=== PATIENT | male | born 1975 | race Caucasian/White ===

== ENCOUNTER 2017-09-21 15:52 | Emergency (ER) | payer SELFPAY ==
[~2017-09-21] VITALS: Ht 172.7 cm; Wt 51.8 kg
[2017-09-21 16:58] LABS: BASO % 0.6 % (0.0-1.0); EOS # 0.2 10^3/uL (0.0-0.50); EOS % 2.8 % (0.0-3.0); IMMATURE GRANULOCYTE % 0.1 % (0-0); LYMPH # 1.1 10^3/uL (1.5-4.5); MEAN CORPUSCULAR HEMOGLOBIN 29.5 pg (27.0-33.0); MEAN CORPUSCULAR HGB CONC 34.4 g/dl (32.0-36.5); MEAN CORPUSCULAR VOLUME 85.6 fl (80.0-96.0); MONO # 0.6 10^3/uL (0.0-0.8); MONO % 8.1 % (0.0-5.0); NEUTROPHILS # 4.9 10^3/uL (1.8-7.7); NEUTROPHILS % 72.4 % (36.0-66.0); PLATELET COUNT, AUTOMATED 300 10^3/uL (150-450); RED CELL DISTRIBUTION WIDTH 11.9 % (11.5-14.5); WHITE BLOOD COUNT 6.8 10^3/uL (4.0-10.0)
[2017-09-21 17:21] LABS: ALBUMIN 3.9 GM/DL (3.2-5.2); ALBUMIN/GLOBULIN RATIO 1.18 (1.00-1.93); ALKALINE PHOSPHATASE 86 U/L (45-117); ALT/SGPT 45 U/L (12-78); ANION GAP 9 MEQ/L (8-16); AST/SGOT 25 U/L (7-37); BILIRUBIN,DIRECT 0.3 MG/DL (0.0-0.2); BILIRUBIN,TOTAL 1.4 MG/DL (0.2-1.0); BLOOD UREA NITROGEN 17 MG/DL (7-18); CALCIUM LEVEL 8.6 MG/DL (8.5-10.1); CARBON DIOXIDE LEVEL 27 MEQ/L (21-32); CHLORIDE LEVEL 106 MEQ/L (98-107); CREATININE FOR GFR 0.92 MG/DL (0.70-1.30); GLOMERULAR FILTRATION RATE > 60.0 (>60); GLUCOSE, FASTING 107 MG/DL (70-105); POTASSIUM SERUM 3.2 MEQ/L (3.5-5.1); SODIUM LEVEL 142 MEQ/L (136-145); TOTAL PROTEIN 7.2 GM/DL (6.4-8.2)
[2017-09-21] MEDS ORDERED: LIDOCAINE 2% JELLY 30 ML As Ordered ONE (17:24)
[2017-09-21] MEDS ORDERED: LIDOCAINE 2% 5ML JELLY UROJET TOP ONE (17:30)
[2017-09-21] MEDS ORDERED: LIDOCAINE 2% JELLY 30 ML TOP ONE ×2 (17:45→22:45)
[2017-09-21] MEDS ORDERED: POTASSIUM CHLORIDE 10 MEQ SR TABLET PO ONE (18:15)
[2017-09-21] MEDS ORDERED: TAMSULOSIN 0.4 MG CAP PO ONE ×2 (18:15→21:00)
[2017-09-21 18:24] LABS: MICROSCOPIC INDICATED? RFX YES (NO)
[2017-09-21 18:25] LABS: BACTERIA, URINE NONE SEEN; HYALINE CAST, URINE NONE SEEN /lpf (0-1); MICROSCOPIC EXAM PERFORMED; RBC, URINE TNTC /hpf (0-3); SQUAMOUS EPITHELIAL CELL URINE SMALL AMOUNT /hpf (SMALL AMT); WBC, URINE NONE SEEN /hpf (0-3)
[2017-09-21] MEDS ORDERED: PERCOCET 5MG/325MG TAB PO ONE (19:30)
[2017-09-21] MEDS ORDERED: CIPROFLOXACIN 500 MG TAB PO ONE (19:30)
[2017-09-21] MEDS ORDERED: PHENAZOPYRIDINE 100 MG TAB PO ONE (19:30)
[2017-09-21] MEDS ORDERED: hydrOXYzine 50 MG TAB PO STA (20:50)
--- NOTE | 2017-09-21 22:58 | SMCUROLCON ---
Urology Consultation General Date of Consultation 09/21/17 Reason For Consultation This patient is seen for Urinary Issue.Patient passed stone earlier today. Since then has been unable to void. no prior voiding sxs Multiple attempts made to pass catheter by ER staff however unsuccessful. Denies recent UTI. No hx of BPH. No flow issues. Denies past hx, hx of catheterization History of Present Illness The patient is a [42]-year-old [male] with a past medical history for [ nephrolithiasis].No prior hx.No difficulties voiding prior to this visit. Passed stone earlier today. Hx of nephrolithiasis and passed stones previously Medications Current Medications Current Medications Hydroxyzine HCl (Atarax) 50 mg STAT STAT PO Last administered on 09/21/17t 20 :55; Start 09/21/17 at 20:50; Stop 09/21/17 at 20:51; Status DC Allergies Allergies: Coded Allergies: No Known Drug Allergy (Verified Allergy, Unknown, 09/21/17) Review of Systems General: Denies: ROS Unobtainable, Chills, Night Sweats, Fatigue, Malaise, Normal Appetite, Other Symptoms Constitutional: Denies: Fever, Chills, Sweats, Weakness, Malaise, Other Eyes: Denies: Pain, Vision change, Conjunctivae inflammation, Eyelid inflammation, Redness, Other ENT: Denies: Head Aches, Ear Pain, Dysphagia, Sinus Congestion, Post Nasal Drip , Sore Throat, Epistaxis, Other Symptoms Pulmonary: Denies: Dyspnea, Cough, Pleuritic Chest Pain, Other Symptoms Cardiovascular: Denies Chest Pain, Denies Palpitations, Denies Orthopnea, Denies Paroxysmal Noc. Dyspnea, Denies Edema, Denies Lt Headedness, Denies Other Symptoms Genitourinary: Reports: Dysuria, Frequency, Incontinence, Hematuria, Retention , Other Symptoms Hematologic: Denies: Bruising, Bleeding Excessively, Petecchia, Purpura, Enlarged Lymph Nodes, Other Hematologic Endocrine: Denies: Polydipsia, Polyphagia, Polyuria, Heat Intolerance, Cold Intolerance, Other Endocrine Sx Physical Examination Chest Exam: No: Clear to auscultation, Normal air movement, Rales, Rhonchi, Wheezing, Diminished, Other Heart Exam: No: Rate Normal, Tachycardic, Bradycardic, Regular Rhythm, Irregular Rhythm, Normal S1, Normal S2, Gallops, Murmurs, Rubs, Other Abdomen Exam: No: Normal Bowel Sounds, BS Hyperactive, BS Hypoactive, Soft, Tenderness, Hepatospenomegaly, Mass, Hernia, Other Male Exam Blood at the meatus; circumcised; testes descended; urethra non tender Extremity Exam: No: Clubbing, Cyanosis, Edema, Normal Pulses, Tenderness, Swelling, Other Skin Exam: No: Nl turgor and temperature, Rash, Breakdown, Lesion, Pruritus, Other skin issue Neuro Exam: No: Normal Gait, Normal Speech, Strength at 5/5 X4 ext, Normal Tone , Sensation Intact, Cranial Nerves 3-12 NL, Reflexes 2+, Other Vital Signs/I&O Vital Signs Date Time Temp Pulse Resp B/P (MAP) Pulse Ox O2 Delivery O2 Flow Rate FiO2 09/21/17 22:00 99.2 102 14 120/60 (80) 98 Room Air Laboratory Data 24H Labs Laboratory Tests 2 09/21/17 16:45: Immature Granulocyte % (Auto) 0.1H, White Blood Count 6.8, Red Blood Count 5.29 , Hemoglobin 15.6, Hematocrit 45.3, Mean Corpuscular Volume 85.6, Mean Corpuscular Hemoglobin 29.5, Mean Corpuscular Hemoglobin Concent 34.4, Red Cell Distribution Width 11.9, Platelet Count 300, Neutrophils (%) (Auto) 72.4H, Lymphocytes (%) (Auto) 16.0L, Monocytes (%) (Auto) 8.1H, Eosinophils (%) (Auto) 2.8, Basophils (%) (Auto) 0.6, Neutrophils # (Auto) 4.9, Lymphocytes # (Auto) 1.1L, Monocytes # (Auto) 0.6, Eosinophils # (Auto) 0.2, Basophils # (Auto) 0.0, Immature Granulocyte # (Auto) 0.0, Nucleated Red Blood Cells % (auto) 0.0, Anion Gap 9, Glomerular Filtration Rate > 60.0, Calcium Level 8.6, Aspartate Amino Transf (AST/SGOT) 25, Alanine Aminotransferase (ALT/SGPT) 45, Alkaline Phosphatase 86, Total Bilirubin 1.4H, Direct Bilirubin 0.3H, Total Protein 7.2, Albumin 3.9, Albumin/Globulin Ratio 1.18 09/21/17 18:08: Bedside Urine Color (LAB) REDH, Bedside Urine Appearance (LAB) CLOUDYH, Bedside Urine pH (LAB) , Bedside Urine Specific Hayes (LAB , Bedside Urine Protein ( LAB) , Bedside Urine Glucose (UA) , Bedside Urine Ketones (LAB) , Bedside Urine Blood , Bedside Urine Nitrite (LAB) , Bedside Urine Bilirubin (LAB) , Bedside Urine Urobilinogen (LAB) , Bedside Urine Leukocyte Esterase (L , Urine WBC NONE SEEN, Urine RBC TNTCH, Urine Squamous Epithelial Cells SMALL AMOUNT, Urine Bacteria NONE SEEN, Urine Hyaline Casts NONE SEEN, Urine Sediment Examination PERFORMED CBC/BMP Laboratory Tests 09/21/17 16:45 Red Blood Count 5.29, Mean Corpuscular Volume 85.6, Mean Corpuscular Hemoglobin 29.5, Mean Corpuscular Hemoglobin Concent 34.4, Red Cell Distribution Width 11.9 , Neutrophils (%) (Auto) 72.4 H, Lymphocytes (%) (Auto) 16.0 L, Monocytes (%) ( Auto) 8.1 H, Eosinophils (%) (Auto) 2.8, Basophils (%) (Auto) 0.6, Neutrophils # (Auto) 4.9, Lymphocytes # (Auto) 1.1 L, Monocytes # (Auto) 0.6, Eosinophils # (Auto) 0.2, Basophils # (Auto) 0.0 Assessment Uirnary retention Penis prepped and draped in [facility]. Blood dripping at meatus. No expressed blood from base of penis and c/w local trauma. 16f coude inserted without difficulty. No clots. Draining freely approx 800 cc pyridium stained urine no clots. Plan Catheter to remain in palce until Sunday. D/c with leg bag and Flomax daily x 3 days Time Spent on Consult: Time Spent / Consult (Minutes): 40 MOHAN SETHI MD Sep 21, 2017 22:58
[2017-09-21] MEDS ORDERED: FLOM5CAP PO (23:00)
[2017-09-21] MEDS ORDERED: CIPR-249 PO (23:00)
[2017-09-21 23:37] VITALS: BP 122/72
--- NOTE | 2017-09-25 09:29 | REP ---
Clinical: Acute flank pain with history of renal stones. Comparison: 04/04/2012. Findings: Evaluation of the urinary tract system demonstrates normal appearance to the kidneys, ureters and bladder. Specifically, no perinephric stranding, hydroureteronephrosis, or obstructing ureteral calculi are identified. Incidental 1 mm nonobstructing right renal calculus cannot be excluded. Liver, spleen, pancreas, gallbladder, and bilateral adrenal glands are normal. The enteric system is without obstruction or acute inflammatory process. Pelvis demonstrates normal bladder and age appropriate prostate/seminal vesicles. No free air. No free fluid. No obvious adenopathy. Surrounding musculoskeletal structures demonstrate chronic L5 spondylolysis without spondylolisthesis. Impression: 1. 1 mm nonobstructing right renal calculus. No further urinary tract pathology. 2. Chronic bilateral L5 spondylolysis without spondylolisthesis. Signed by Yamil Mckeon MD 09/21/2017 05:09 P
== END 2017-09-21 23:59 | disposition home or self-care (01) ==
LOC: M ED 15:52
DX: R33.9 Retention of urine, unspecified (principal); E87.6 Hypokalemia; N20.0 Calculus of kidney; M43.06 Spondylolysis, lumbar region; Z86.59 Personal history of other mental and behavioral disorders; Z87.442 Personal history of urinary calculi; Z86.19 Personal history of other infectious and parasitic diseases